=== PATIENT | male | born 1985 | race Caucasian/White ===

== ENCOUNTER 2017-10-16 18:50 | Emergency (ER) | payer SELFPAY ==
[~2017-10-16] VITALS: Ht 157.5 cm; Wt 78.2 kg
[2017-10-16 19:04] VITALS: BP 132/75; PULSE 114; RESP 16; TEMP 98.9; O2SAT 94
--- NOTE | 2017-10-16 19:16 | PD ---
HPI Chief Complaint: Cold / Flu Symptoms Time Seen by Provider: 19:11 Travel History International Travel<30 days: No Contact w/Intl Traveler<30days: No Traveled to known affect area: No History of Present Illness HPI 32-year-old male presents to emergency department for evaluation of chest pain associated with cough intermittently occurring for the last month. Patient states he has had this since been in detention. He has not been able to follow-up on it because he has had no primary care provider. Denies any fever or chills. Cough is nonproductive. Denies any sick contacts. No hemoptysis. Denies IV drug use. No other symptoms to report. PFSH Past Medical History Anxiety: Yes Depression: Yes Diabetes: Yes (type II) Patient Takes Glucophage: No GERD: Yes Shingles: Yes Past Surgical History Other Surgery: Yes (pilonidal cyst removal) Social History Alcohol Use: Yes (occassional) Tobacco Use: Yes (1ppd) Substance Use: No Allergies-Medications (Allergen,Severity, Reaction): Coded Allergies: No Known Allergies (Unverified , 10/16/17) Reported Meds & Prescriptions Reported Meds & Active Scripts Active No Active Prescriptions or Reported Medications Review of Systems Except as stated in HPI: all other systems reviewed are Neg Physical Exam Narrative GENERAL: Well-nourished male patient in no acute distress. SKIN: Focused skin assessment warm/dry. Scattered micropapules lesions on the trunk and extremities. HEAD: Atraumatic. Normocephalic. EYES: Pupils equal and round. No scleral icterus. No injection or drainage. ENT: No nasal bleeding or discharge. Mucous membranes pink and moist. NECK: Trachea midline. No JVD. CARDIOVASCULAR: Tachycardic rate and rhythm. No murmur appreciated. RESPIRATORY: No accessory muscle use. Clear to auscultation. Breath sounds equal bilaterally. GASTROINTESTINAL: Abdomen soft, non-tender, nondistended. Hepatic and splenic margins not palpable. MUSCULOSKELETAL: No obvious deformities. No clubbing. No cyanosis. No edema. NEUROLOGICAL: Awake and alert. No obvious cranial nerve deficits. Motor grossly within normal limits. Normal speech. PSYCHIATRIC: Appropriate mood and affect; insight and judgment normal. Data Data Last Documented VS Vital Signs Date Time Temp Pulse Resp B/P (MAP) Pulse Ox O2 Delivery O2 Flow Rate FiO2 10/16/17 19:04 98.9 114 16 132/75 (94) 94 Orders Orders Electrocardiogram (10/16/17 19:20) Complete Blood Count With Diff (10/16/17 19:20) Chest, Single Ap (10/16/17 19:20) Ecg Monitoring (10/16/17 19:20) Bilateral Bp Monitoring (10/16/17 19:20) Iv Access Insert/Monitor (10/16/17 19:20) Oximetry (10/16/17 19:20) Oxygen Administration (10/16/17 19:20) Sodium Chloride 0.9% Flush (Ns Flush) (10/16/17 19:30) Sodium Chlor 0.9% 1000 Ml Inj (Ns 1000 M (10/16/17 19:30) Basic Metabolic Panel (Bmp) (10/16/17 19:25) Ketorolac Inj (Toradol Inj) (10/16/17 19:30) Sodium Chlor 0.9% 1000 Ml Inj (Ns 1000 M (10/16/17 22:15) Ct Pulmonary Angiogram (10/16/17 ) Coag Profile (10/16/17 22:15) Labs Laboratory Tests Test 10/16/17 21:38 White Blood Count 12.0 TH/MM3 Red Blood Count 4.90 MIL/MM3 Hemoglobin 15.2 GM/DL Hematocrit 43.9 % Mean Corpuscular Volume 89.5 FL Mean Corpuscular Hemoglobin 30.9 PG Mean Corpuscular Hemoglobin Concent 34.5 % Red Cell Distribution Width 12.7 % Platelet Count 321 TH/MM3 Mean Platelet Volume 9.4 FL Neutrophils (%) (Auto) 63.9 % Lymphocytes (%) (Auto) 26.6 % Monocytes (%) (Auto) 8.0 % Eosinophils (%) (Auto) 0.9 % Basophils (%) (Auto) 0.6 % Neutrophils # (Auto) 7.6 TH/MM3 Lymphocytes # (Auto) 3.2 TH/MM3 Monocytes # (Auto) 1.0 TH/MM3 Eosinophils # (Auto) 0.1 TH/MM3 Basophils # (Auto) 0.1 TH/MM3 CBC Comment DIFF FINAL Differential Comment MDM Medical Decision Making Medical Screen Exam Complete: Yes Emergency Medical Condition: Yes Medical Record Reviewed: Yes Differential Diagnosis Common cold versus pneumonia versus PE versus cough versus pleuritic pain versus costochondritis versus chest wall pain Narrative Course 32-year-old male presents to emergency department for evaluation of chest pain with associated cough intermittent migraine over the last month. Patient is persistently tachycardic here in emergency department. Oxygen saturation is 92- 96% on room air. Patient appears nontoxic. CBC is without acute concern. BMP is still pending. I discussed the patient my attending physician. CT pulmonary angiogram is ordered for evaluation of possible PE due to the duration , persistent tachycardia, and decreased oxygen saturation. Side note, patient skin is concerning for scabies infection. He'll need to be treated for this. 2300 BMP is still pending. CT pony injury is also pending. Patient is signed out to my attending physician will assume care and disposition patient per her judgment. Scripts No Active Prescriptions or Reported Meds Condition: Stable Stefani Dye Oct 16, 2017 19:16
[2017-10-16] MEDS ORDERED: SODIUM CHLORIDE 0.9% FLUSH 10 ML FLUSH IVF PRN (19:30)
--- NOTE | 2017-10-16 20:49 | RADRPT ---
EXAM DATE/TIME: 10/16/2017 19:57 [facility] COMPARISON: No previous studies available for comparison. INDICATIONS : Patient complains of chest pain and shortness of breath. MEDICAL HISTORY : None. SURGICAL HISTORY : None. ENCOUNTER: Initial ACUITY: 1 day PAIN SCORE: 4/10 LOCATION: chest FINDINGS: A single view of the chest demonstrates the lungs to be symmetrically aerated without evidence of mas s, infiltrate or effusion. The cardiomediastinal contours are unremarkable. Osseous structures are intact. CONCLUSION: 1. No acute cardiopulmonary findings. Dmitry Zuñiga MD on October 16, 2017 at 20:46 Board Certified Radiologist. This report was verified electronically.
[2017-10-16 21:52] LABS: AUTOMATED NEUTROPHIL # 7.6 TH/MM3 (1.8-7.7); BASOPHIL # 0.1 TH/MM3 (0-0.2); BASOPHIL % 0.6 % (0.0-2.0); EOSINOPHIL # 0.1 TH/MM3 (0-0.4); EOSINOPHIL % 0.9 % (0.0-4.0); HEMATOCRIT 43.9 % (39.0-51.0); HEMOGLOBIN 15.2 GM/DL (13.0-17.0); LYMPH % 26.6 % (9.0-44.0); LYMPHOCYTE # 3.2 TH/MM3 (1.0-4.8); MEAN CELL VOLUME 89.5 FL (80.0-100.0); MEAN CORPUSCULAR HEMOGLOBIN 30.9 PG (27.0-34.0); MEAN CORPUSCULAR HGB CONC 34.5 % (32.0-36.0); MEAN PLATELET VOLUME 9.4 FL (7.0-11.0); NEUT % 63.9 % (16.0-70.0); PLATELET COUNT 321 TH/MM3 (150-450); RED CELL DISTRIBUTION WIDTH 12.7 % (11.6-17.2)
[2017-10-16] MEDS: KETOROLAC TROMETHAMINE 30 MG/ML (IVP) VIAL IV PUSH ONE (23:15)
[2017-10-16] MEDS: SODIUM CHLOR 0.9% 1000 ML INJ 1,000 ML IV ONE ×2 (23:15)
[2017-10-16] MEDS: IOHEXOL 350 MG/ML 10 ML VIAL (for RAD DIAG) IVCONTRAST ONE (23:58)
--- NOTE | 2017-10-17 00:16 | RADRPT ---
EXAM DATE/TIME: 10/16/2017 23:43 [facility] COMPARISON: No previous studies available for comparison. INDICATIONS : Chest pain; rule out pulmonary embolus. IV CONTRAST: 82 cc Omnipaque 350 (iohexol) IV RADIATION DOSE: 19.87 CTDIvol (mGy) MEDICAL HISTORY : Gastroesophageal reflux disease. Diabetes mellitus type 2. SURGICAL HISTORY : None. ENCOUNTER: Initial ACUITY: 1 day PAIN SCALE: 6/10 LOCATION: chest TECHNIQUE: Volumetric scanning of the chest was performed using a pulmonary embolism protocol MIP images were re constructed. Using automated exposure control and adjustment of the mA and/or kV according to patien t size, radiation dose was kept as low as reasonably achievable to obtain optimal diagnostic quality images. DICOM format image data is available electronically for review and comparison. Follow-up recommendations for detected pulmonary nodules are based at a minimum on nodule size and pa tient risk factors according to Fleischner Society Guidelines. FINDINGS: PULMONARY ARTERIES: No filling defects are seen in the pulmonary arteries through the segmental level. LUNGS: There is no consolidation or pneumothorax . No concerning pulmonary nodule is visualized. PLEURAE: There is no pleural thickening or pleural effusion. MEDIASTINUM: There is good visualization of the great vessels of the middle mediastinum. No evidence of mediastin al or hilar adenopathy/mass. MUSCULOSKELETAL: Within normal limits for patient age. MISCELLANEOUS: The visualized upper abdominal organs demonstrate no acute abnormality. Diminished hepatic attenuatio n characteristic of some degree of fatty infiltration. CONCLUSION: 1. Diminished hepatic attenuation characteristic of some degree of fatty infiltration. 2. Otherwise negative. No acute infiltrate or pulmonary embolus to explain current clinical symptoms. Дмитрий Yuen MD on October 17, 2017 at 0:13 Board Certified Radiologist. This report was verified electronically.
[2017-10-17 02:23] LABS: PROTHROMBIN TIME - PATIENT 9.8 SEC (9.8-11.6)
[2017-10-17 04:04] LABS: BICARBONATE 25.7 MEQ/L (21.0-32.0); CALCIUM 7.6 MG/DL (8.5-10.1); CREATININE 0.67 MG/DL (0.60-1.30)
[2017-10-17 07:05] VITALS: O2SAT 98
[2017-10-17 07:06] VITALS: O2SAT 98
--- NOTE | 2017-10-17 07:59 | PD ---
Physical Exam Narrative I, Dr. Monroe, have reviewed the advance practice practitioner's documentation and am in agreement, met with the patient face to face, made the diagnosis, and the medical decision making was done by me. *My assessment and Findings: Patient is a 32-year-old male who comes in complaining of cough for a month. Says he has some pain to his chest when he coughs. He has not had any shortness of breath. Patient was tachycardic on presentation. Lungs are clear to auscultation. Data Data Last Documented VS Vital Signs Date Time Temp Pulse Resp B/P (MAP) Pulse Ox O2 Delivery O2 Flow Rate FiO2 10/17/17 07:06 98 10/17/17 07:05 Room Air 10/16/17 19:04 98.9 114 16 132/75 (94) Orders Orders Complete Blood Count With Diff (10/16/17 19:20) Chest, Single Ap (10/16/17 19:20) Ecg Monitoring (10/16/17 19:20) Bilateral Bp Monitoring (10/16/17 19:20) Iv Access Insert/Monitor (10/16/17 19:20) Oximetry (10/16/17 19:20) Oxygen Administration (10/16/17 19:20) Sodium Chloride 0.9% Flush (Ns Flush) (10/16/17 19:30) Sodium Chlor 0.9% 1000 Ml Inj (Ns 1000 M (10/16/17 19:30) Basic Metabolic Panel (Bmp) (10/16/17 19:25) Ketorolac Inj (Toradol Inj) (10/16/17 19:30) Sodium Chlor 0.9% 1000 Ml Inj (Ns 1000 M (10/16/17 22:15) Ct Pulmonary Angiogram (10/16/17 ) Coag Profile (10/16/17 22:15) Iohexol 350 Inj (Omnipaque 350 Inj) (10/16/17 23:58) Ed Discharge Order (10/17/17 07:38) Labs Laboratory Tests Test 10/16/17 03:28 10/16/17 21:38 10/17/17 01:30 Blood Urea Nitrogen 13 MG/DL Creatinine 0.67 MG/DL Random Glucose 254 MG/DL Calcium Level 7.6 MG/DL Sodium Level 140 MEQ/L Potassium Level 3.8 MEQ/L Chloride Level 108 MEQ/L Carbon Dioxide Level 25.7 MEQ/L Anion Gap 6 MEQ/L Estimat Glomerular Filtration Rate 138 ML/MIN White Blood Count 12.0 TH/MM3 Red Blood Count 4.90 MIL/MM3 Hemoglobin 15.2 GM/DL Hematocrit 43.9 % Mean Corpuscular Volume 89.5 FL Mean Corpuscular Hemoglobin 30.9 PG Mean Corpuscular Hemoglobin Concent 34.5 % Red Cell Distribution Width 12.7 % Platelet Count 321 TH/MM3 Mean Platelet Volume 9.4 FL Neutrophils (%) (Auto) 63.9 % Lymphocytes (%) (Auto) 26.6 % Monocytes (%) (Auto) 8.0 % Eosinophils (%) (Auto) 0.9 % Basophils (%) (Auto) 0.6 % Neutrophils # (Auto) 7.6 TH/MM3 Lymphocytes # (Auto) 3.2 TH/MM3 Monocytes # (Auto) 1.0 TH/MM3 Eosinophils # (Auto) 0.1 TH/MM3 Basophils # (Auto) 0.1 TH/MM3 CBC Comment DIFF FINAL Differential Comment Prothrombin Time 9.8 SEC Prothromb Time International Ratio 1.0 RATIO Activated Partial Thromboplast Time 25.0 SEC [facility] Supervised Visit with MISTY: Yes Narrative Course Labs show no acute abnormalities. Chest x-ray shows no acute abnormalities. CT of the chest performed shows no acute abnormalities. Patient was observed in the ED for the night with no further issues. He is homeless currently. He is advised to follow-up with the [facility]. Advised return to the ED as needed for any worsening symptoms. Last 24 hours Impressions Chest X-Ray 10/16/17 1920 Signed Impressions: Service Date/Time: Monday, October 16, 2017 19:57 - CONCLUSION: 1. No acute cardiopulmonary findings. Dmitry Zuñiga MD CT Angiography 10/16/17 0000 Signed Impressions: Service Date/Time: Monday, October 16, 2017 23:43 - CONCLUSION: 1. Diminished hepatic attenuation characteristic of some degree of fatty infiltration. 2. Otherwise negative. No acute infiltrate or pulmonary embolus to explain current clinical symptoms. Дмитрий Yuen MD Diagnosis Primary Impression: Viral syndrome Patient Instructions: General Instructions, Viral Syndrome (ED) Additional Instruction: Take Tylenol or Ibuprofen as needed for pain or fever. Drink plenty of fluids. Follow up with a doctor. Return to the ED as needed for any worsening symptoms. Scripts No Active Prescriptions or Reported Meds Disposition: 01 DISCHARGE HOME Condition: Stable Elise Monroe MD Oct 17, 2017 07:59
== END 2017-10-17 08:08 | disposition home or self-care (01) ==
LOC: NEPE 18:50
DX: B34.9 Viral infection, unspecified (principal); R07.9 Chest pain, unspecified; R00.0 Tachycardia, unspecified; F41.9 Anxiety disorder, unspecified; F32.9 Major depressive disorder, single episode, unspecified; E11.9 Type 2 diabetes mellitus without complications; K21.9 Gastro-esophageal reflux disease without esophagitis; F17.200 Nicotine dependence, unspecified, uncomplicated
CPT/HCPCS: 71045; 71275; 80048; 85025; 85610; 85730; 96361; 96374; 99284; J1885; J7030; Q9967

== ENCOUNTER 2017-10-21 18:22 | Emergency (ER) | payer SELFPAY ==
[~2017-10-21] VITALS: Ht 157.5 cm; Wt 70.0 kg
[2017-10-21 18:41] VITALS: BP 124/65; PULSE 101; RESP 16; TEMP 98.6; O2SAT 97
[2017-10-21] MEDS ORDERED: IVER5TAB PO (19:37)
--- NOTE | 2017-10-21 19:38 | PD ---
HPI . Chest pain Chief Complaint: Chest Pain Time Seen by Provider: 19:06 Travel History International Travel<30 days: No Contact w/Intl Traveler<30days: No Traveled to known affect area: No History of Present Illness HPI This patient presents with chief complaint of chest pain. Onset was about a week ago. It is an intermittent stabbing pain which he rates 6/10. He reports occasional shortness of breath. In addition, the patient is complaining with scabies. He has had this since June when he was incarcerated in detention. He states that he was treated in detention with 4 pills but that the rash has subsequently recurred. It has now been present since July. He has not been treated for it since July. [facility] Past Medical History Anxiety: Yes Depression: Yes Diabetes: Yes (type II) GERD: Yes Shingles: Yes Past Surgical History Other Surgery: Yes (pilonidal cyst removal) Social History Alcohol Use: Yes (occassional) Tobacco Use: Yes (1ppd) Substance Use: No Allergies-Medications (Allergen,Severity, Reaction): Coded Allergies: No Known Allergies (Unverified , 10/16/17) Reported Meds & Prescriptions Reported Meds & Active Scripts Active No Active Prescriptions or Reported Medications Review of Systems Except as stated in HPI: all other systems reviewed are Neg General / Constitutional: No: Fever, Chills Cardiovascular: Positive: Chest Pain or Discomfort Respiratory: Positive: Shortness of Breath Skin: Positive Rash Physical Exam Narrative GENERAL: Awake and alert and in no acute distress. SKIN: warm/dry. He has a macular rash scattered all over his body. Some of the lesions are red and lesions all others are scabbed. HEAD: Normocephalic. Atraumatic. EYES: Pupils equal and round. No scleral icterus. No injection or drainage. ENT: No nasal bleeding or discharge. Mucous membranes pink and moist. NECK: Trachea midline. Full range of motion without pain.. CARDIOVASCULAR: Regular rate and rhythm. Heart sounds are normal. RESPIRATORY: No accessory muscle use. Clear to auscultation. Breath sounds equal bilaterally. MUSCULOSKELETAL: No obvious deformities. NEUROLOGICAL: Awake and alert. No obvious cranial nerve deficits. Motor grossly within normal limits. Normal speech. PSYCHIATRIC: Appropriate mood and affect; insight and judgment normal. Data Data Last Documented VS Vital Signs Date Time Temp Pulse Resp B/P (MAP) Pulse Ox O2 Delivery O2 Flow Rate FiO2 10/21/17 18:41 98.6 101 16 124/65 (84) 97 MDM Medical Decision Making Medical Screen Exam Complete: Yes Emergency Medical Condition: Yes Medical Record Reviewed: Yes (the patient was seen here on 10/16 for same. He had a evaluation including a CT for PE which was negative. He was discharged.) Interpretation(s) EKG shows a sinus rhythm with a rate of 94. No acute ischemic changes. This is a normal EKG. Differential Diagnosis Differential diagnosis of chest pain includes but is not limited to musculoskeletal pain, pulmonary embolism, acute coronary syndrome, pneumonia, pleurisy The differential diagnosis of the skin rash includes but is not limited to allergic urticaria, scabies, insect bites, contact dermatitis Narrative Course This is a homeless patient presents with the chief complaint of chest pain and the secondary complaint of scabies. The patient was evaluated for chest pain on 10/[address] for PE which was negative. He has a normal EKG here tonight. His symptoms have been ongoing for a week. Clinically, he looks well. I do not believe that he needs any further evaluation. Tonight for his chest pain. Regarding the scabies, I will treat him with oral ivermectin. Since he is homeless, I do not believe that he won't be able to use permethrin cream. He will probably have difficulty washing it off after 8 hours. Diagnosis Primary Impression: Atypical chest pain Additional Impression: Scabies Patient Instructions: Chest Pain (DC), General Instructions, Scabies (DC) Med/Other Pt SpecificInfo: Prescription(s) given Scripts Ivermectin (Ivermectin) 3 Mg Tab 5 TAB PO q 1 week X 3 weeks, #15 Prov: Edilma Smith MD 10/21/17 Disposition: 01 DISCHARGE HOME Condition: Stable Edilma Smith MD Oct 21, 2017 19:38
--- NOTE | 2017-10-22 19:16 | EKG ---
Date Performed: 10/21/2017 Time Performed: 18:59:00 PTAGE: 32 years EKG: Sinus rhythm NORMAL ECG NO PREVIOUS TRACING DOCTOR: Anil Scott Interpretating Date/Time 10/22/2017 19:14:22
== END 2017-10-21 20:49 | disposition home or self-care (01) ==
LOC: NEPE 18:22
DX: R07.89 Other chest pain (principal); B86 Scabies; F17.200 Nicotine dependence, unspecified, uncomplicated
CPT/HCPCS: 93005; 99283

== ENCOUNTER 2017-10-22 00:47 | Emergency (ER) | payer SELFPAY ==
[~2017-10-22] VITALS: Ht 157.5 cm; Wt 75.0 kg
[~2017-10-22 00:47] MED LIST: IVER5TAB PO
[2017-10-22 00:56] VITALS: BP 136/68; PULSE 99; RESP 18; TEMP 98.4; O2SAT 97
--- NOTE | 2017-10-22 02:52 | PD ---
HPI Chief Complaint: Pain: Acute or Chronic Time Seen by Provider: 02:50 Travel History International Travel<30 days: No Contact w/Intl Traveler<30days: No Traveled to known affect area: No History of Present Illness HPI 32-year-old white male presents emergency department after being seen earlier this evening for atypical chest pain. The patient is homeless on the streets. He states that after being discharged from the ER he developed numbness and tingling in his feet from walking. He returns for evaluation. Symptoms are mild. No alleviating factors. Worsened by walking. History Past Medical Histgory Medical History: Denies Significant Hx Tetanus Vaccination: < 5 Years Social History Alcohol Use: Yes (occassional) Tobacco Use: Yes (1ppd) Allergies-Medications (Allergen,Severity, Reaction): Coded Allergies: No Known Allergies (Unverified , 10/22/17) Reported Meds & Prescriptions Reported Meds & Active Scripts Active Ivermectin 3 Mg Tab 5 Tab PO Q 1 WEEK X 3 WEEKS Review of Systems Except as stated in HPI: all other systems reviewed are Neg Physical Exam Narrative GENERAL: This is a well-nourished, well-developed patient, in no apparent distress. SKIN: No rashes, ecchymoses or lesions. Warm and dry. HEAD: Atraumatic. Normocephalic. EYES: PERRL, EOMI, no discharge or injection. No scleral icterus. EARS: Clear NOSE: Nasal turbinates appear normal. THROAT: Mucosa pink and moist. Airway patent. NECK: Trachea midline. supple, moves head freely. LUNGS: Clear to auscultation. CV: Regular in rhythm. ABDOMEN: Soft nontender. EXT: No clubbing cyanosis or edema. Patient has intact gross sensation. There is no obvious deformity. Neurovascular intact. Data Data Last Documented VS Vital Signs Date Time Temp Pulse Resp B/P (MAP) Pulse Ox O2 Delivery O2 Flow Rate FiO2 10/22/17 00:56 98.4 99 18 136/68 (90) 97 MDM Medical Screen Exam Complete: Yes Emergency Medical Condition: No Differential Diagnosis Differential diagnosis: Neurapraxia, tinea pedis, malingering Narrative Course A medical screening exam was performed: At the time of evaluation the presenting medical condition was determined not to be of an emergent nature. The patient was given the option of receiving additional care, but declined. Patient was given options for additional community resources from which to obtain care. The Patient Has Been advised to seek medical attention for their presenting complaint. The patient has been advised to return to the ER at any time if an emergent condition develops. Primary Impression: Encounter for medical screening examination Condition: Greg Minaya Oct 22, 2017 02:52
== END 2017-10-22 03:14 | disposition left against medical advice (07) ==
LOC: NEPD 00:47
DX: R07.89 Other chest pain (principal); R20.0 Anesthesia of skin; F17.200 Nicotine dependence, unspecified, uncomplicated; Z59.0 Homelessness
CPT/HCPCS: 99281